=== PATIENT | male | born 1960 | race Caucasian/White ===

== ENCOUNTER 2016-09-20 11:12 | Day surgery (SDC) | payer OTHER ==
[2016-09-20] MEDS ORDERED: LIDOCAINE 2% 5 ML SDV ONE (12:40)
[2016-09-20] MEDS ORDERED: PROPOFOL 200 MG/20 ML VIAL ONE ×2 (12:40)
--- NOTE | 2016-09-20 14:28 | GPN ---
[f rep st] PROCEDURE NOTE DATE OF PROCEDURE: 09/20/2016 PROCEDURE: Colonoscopy. INDICATION: The patient is a 55-year-old male with a history of colon cancer status post right hemicolectomy. He presents for surveillance colonoscopy. CONSENT: Risks, benefits, and alternatives of the procedure were discussed with the patient as well as family who was present. Power of real estate attorney signed the consent. All questions were answered. Informed consent was obtained. MEDICATIONS: Propofol. Please see Anesthesia record for details. ESTIMATED BLOOD LOSS: None. COLONOSCOPIC EVALUATION: A rectal exam was performed and no palpable mass was felt. The scope was introduced into the rectum and advanced to the anastomosis. The small bowel was intubated. The patient was noted to have scattered diverticulosis throughout his colon. No mass or polyps were seen. IMPRESSION: 1. Diverticulosis. 2. No polyps or masses RECOMMENDATIONS: 1. Repeat colonoscopy in 3 years with propofol. 2. Fiber supplementation. /[id number]/MODL MTDD
== END 2016-09-20 13:52 | disposition home or self-care (01) ==
LOC: FSGY 11:12
PROVIDERS: ATTEND Internal Medicine Gastroenterology
PROC: 0DJD8ZZ Inspection of Lower Intestinal Tract, Via Natural or Artificial Opening Endoscopic (ICD-10-PCS; principal; 2016-09-20 14:15)
DX: Z85.038 Personal history of other malignant neoplasm of large intestine (principal); K57.30 Diverticulosis of large intestine without perforation or abscess without bleeding; K21.9 Gastro-esophageal reflux disease without esophagitis; Z90.49 Acquired absence of other specified parts of digestive tract
CPT/HCPCS: J2704